=== PATIENT | female | born 1935 | race Caucasian/White ===

== ENCOUNTER → 2021-07-17 | Outpatient (CLI) | payer MEDICARE ==
[~2021-07-17] MED LIST: ACCUPRIL20 MG PO; EVISTA60 MG PO; LIPITOR TAB 1010 MG PO; VIT D PO
== END ==
LOC: RAD 11:19
DX: S99.911A Unspecified injury of right ankle, initial encounter (principal); S82.831A Other fracture of upper and lower end of right fibula, initial encounter for closed fracture
CPT/HCPCS: 73610